=== PATIENT | male | born 1980 ===

== ENCOUNTER 2021-02-01 20:31 | Emergency (ER) | payer OTHER ==
[2021-02-01] MEDS ORDERED: IBUPROFEN 800 MG TAB PO ONE (21:38)
--- NOTE | 2021-02-01 21:46 | Emergency Department Report ---
ED Male HPI - General Stated complaint: NEED CATHERTERIZE Time Seen by Provider: 02/01/21 21:20 Source: patient Mode of arrival: Ambulatory Limitations: Language Barrier - History of Present Illness Initial comments: CC: "I fell in the police van 8 days ago." HPI: This is a 40 yo male with hx of paraplegia, neurogenic bladder requiring straight catheterization who presents with inability to cath himself. He has been paraplegic for 17 years after remote trauma. He is normally able to straight cath with 14 belizean catheter. Today, he was unable to do so. He is currently incarcerated at the [facility]. He deneis any bladder discomfort. He has headache, bilateral hip and lower back pain after falling in the police van in 8 days. He states that he was not tied down correctly. When the van turned a corner, he fell to the floor. He has mild left headache. NO LOC. He has moderate bilateral hip pain and lower back pain. I obtained history and performed physical exam using [employer] language line plastic roller. Complaint: other (Inability to self cath history of neurogenic bladder status post spinal cord injury history of paraplegia) -: This morning (Unable to self cath since this morning) Severity: mild Consistency: constant Improves with: none Worsens with: none other (Patient reports injury after fall 8 days ago) - Related Data Allergies Allergy/AdvReac Type Severity Reaction Status Date / Time No Known Allergies Allergy Verified 02/01/21 22:17 ED Review of Systems ROS: Stated complaint: NEED CATHERTERIZE Other details as noted in HPI Comment: All other systems reviewed and negative Constitutional: denies: chills, fever, malaise Respiratory: denies: cough, shortness of breath Cardiovascular: denies: chest pain Gastrointestinal: denies: abdominal pain, nausea, vomiting Musculoskeletal: back pain, arthralgia ED Past Medical Hx - Past Medical History Previous Medical History?: Yes Additional medical history: Paraplegia, neurogenic bladder, - Social History Smoking Status: Unknown if ever smoked Substance Use Type: None ED Physical Exam - General Limitations: Language Barrier General appearance: alert, in no apparent distress, other (Appears comfortable no acute distress) - Head Head exam: Present: atraumatic, normocephalic - Eye Eye exam: Present: normal appearance - ENT ENT exam: Present: mucous membranes moist - Neck Neck exam: Present: normal inspection, full ROM - Respiratory Respiratory exam: Present: normal lung sounds bilaterally. Absent: respiratory distress - Cardiovascular Cardiovascular Exam: Present: regular rate, normal rhythm. Absent: systolic murmur, diastolic murmur, rubs, gallop - GI/Abdominal GI/Abdominal exam: Present: soft, normal bowel sounds. Absent: distended, tenderness, guarding, rebound - Rectal Rectal exam: Present: deferred - Extremities Exam Extremities exam: Present: other (Cachectic lower extremities) - Expanded Lower Extremity Exam Left Hip exam: Present: normal inspection, full ROM. Absent: tenderness, swelling Upper Leg exam: Present: normal inspection, full ROM. Absent: tenderness, swelling Knee exam: Present: normal inspection, full ROM. Absent: tenderness, swelling Lower Leg exam: Present: normal inspection, full ROM. Absent: tenderness, swelling Right Hip exam: Present: normal inspection, full ROM. Absent: tenderness, swelling Upper Leg exam: Present: normal inspection, full ROM. Absent: tenderness, swelling Knee exam: Present: normal inspection, full ROM. Absent: tenderness, swelling Lower Leg exam: Present: normal inspection, full ROM - Back Exam Back exam: Present: normal inspection, full ROM. Absent: tenderness, CVA tenderness (R), CVA tenderness (L), muscle spasm - Neurological Exam Neurological exam: Present: alert, oriented X3 - Psychiatric Psychiatric exam: Present: normal affect, normal mood - Skin Skin exam: Present: warm, dry, intact, normal color. Absent: rash ED Medical Decision Making - Radiology Data Radiology results: report reviewed Patient Name: GIAN CAREY Gender: Male Date of : 1980 Home Phone: Referring Provider: LUAN MERLOS Organization: [facility] Accession Number: [id number] Requested Date: February 01, 2021 21:43 Report Status: Final Requested Procedure: 1 Procedure Description: XR hips BILAT 2V w/pelvis Modality: XR Findings Reporting MD: Pierre Redd Dictation Time: February 01, 2021 21:17 Supervisor Communications And Signals: Not available Meat Specialist Date: BILATERAL HIP 3 VIEW(S) INDICATION / CLINICAL INFORMATION: bilateral hip pain fall COMPARISON: None available. FINDINGS: BONES / JOINT(S): No acute fracture or subluxation. Remote appearing avulsion fracture of the right ischial tuberosity. Mild degenerative changes of the bilateral hip joints. SOFT TISSUES: No significant abnormality. ADDITIONAL FINDINGS: None. Signer Name: Pierre Redd MD Signed: 02/01/2021 9:17 PM Workstation Name: [id number] Patient Name: GIAN CAREY Gender: Male Date of : 1980 Home Phone: Referring Provider: LUAN MERLOS Organization: [facility] Accession Number: [id number] Requested Date: February 01, 2021 21:43 Report Status: Final Requested Procedure: 1 Procedure Description: XR spine lumbosacral 2-3V Modality: XR Findings Reporting MD: Pierre Redd Dictation Time: February 01, 2021 21:17 Supervisor Communications And Signals: Not available Meat Specialist Date: LUMBAR SPINE 2 VIEWS INDICATION / CLINICAL INFORMATION: lower back pain fall. COMPARISON: None available. FINDINGS: VERTEBRAE: No acute fracture. No significant malalignment. DISC SPACES / FACET JOINTS:No significant abnormality. PARASPINAL SOFT TISSUES:No significant abnormality. ADDITIONAL FINDINGS: Vascular filter noted within the paraspinal soft tissues.. Signer Name: Pierre Redd MD Signed: 02/01/2021 9:17 PM Workstation Name: [id number] - Medical Decision Making 1. History of neurogenic bladder status post paraplegia: 1400 mL immediately drained after nurse inserted a 16 [place] Bose catheter. 2. History of fall 8 days ago: Lumbar spine radiographs, pelvis hip radiograph did not reveal any acute traumatic injury. Patient has mild close head injury. Next Patient will be discharged with leg bag and urology referral. Critical care attestation.: If time is entered above; I have spent that time in minutes in the direct care of this critically ill patient, excluding procedure time. ED Disposition Clinical Impression: Acute urinary retention, Paraplegia, Neurogenic bladder, Closed head injury, Back contusion, Contusion, hip Disposition: 01 HOME / SELF CARE / HOMELESS Is pt being admited?: No Does the pt Need Aspirin: No Condition: Stable Instructions: Indwelling Urinary Catheter Insertion, Care After, Indwelling Urinary Catheter Care, Adult, [id number] Referrals: MATTHEW MITCHELL MD [Staff Physician] - 3-5 Days Print Language: SOL[place] ISLANDER
--- NOTE | 2021-02-01 22:21 | XRay Report ---
BILATERAL HIP 3 VIEW(S) INDICATION / CLINICAL INFORMATION: bilateral hip pain fall COMPARISON: None available. FINDINGS: BONES / JOINT(S): No acute fracture or subluxation. Remote appearing avulsion fracture of the right i schial tuberosity. Mild degenerative changes of the bilateral hip joints. SOFT TISSUES: No significant abnormality. ADDITIONAL FINDINGS: None. Signer Name: Pierre Redd MD Signed: 02/01/2021 10:17 PM Workstation Name: [id number]
--- NOTE | 2021-02-01 22:22 | XRay Report ---
LUMBAR SPINE 2 VIEWS INDICATION / CLINICAL INFORMATION: lower back pain fall. COMPARISON: None available. FINDINGS: VERTEBRAE: No acute fracture. No significant malalignment. DISC SPACES / FACET JOINTS:No significant abnormality. PARASPINAL SOFT TISSUES:No significant abnormality. ADDITIONAL FINDINGS: Vascular filter noted within the paraspinal soft tissues.. Signer Name: Pierre Redd MD Signed: 02/01/2021 10:17 PM Workstation Name: [id number]
[2021-02-01 23:46] VITALS: BP 123/67
== END 2021-02-01 23:39 | disposition home or self-care (01) ==
LOC: ED 20:31 → EEVIPCON 20:31 → ED 23:38
DX: S30.0XXA Contusion of lower back and pelvis, initial encounter (principal); S70.02XA Contusion of left hip, initial encounter; S70.01XA Contusion of right hip, initial encounter; S09.90XA Unspecified injury of head, initial encounter; R33.9 Retention of urine, unspecified; N31.9 Neuromuscular dysfunction of bladder, unspecified; G82.20 Paraplegia, unspecified; X58.XXXA Exposure to other specified factors, initial encounter; Y93.89 Activity, other specified; Y92.488 Other paved roadways as the place of occurrence of the external cause; Y99.8 Other external cause status
CPT/HCPCS: 51702; 72100; 73521; 99283